=== PATIENT | female | born 2000 | race Caucasian/White ===

== ENCOUNTER 2018-07-15 17:40 | Emergency (ER) | payer OTHER ==
[2018-07-15 18:11] VITALS: BP 97/52; PULSE 81; RESP 16; TEMP 98.8; O2SAT 98
--- NOTE | 2018-07-15 20:44 | ED PDOC ---
History of Present Illness History of Present Illness: Vern Rushing is a 17 year old female, with a past medical history of asthma , who presents to the emergency department complaining of sore throat associated with mild body aches and feeling fatigued onset for x2 days. Patient has a history of asthma and has been having intermittent chest tightness and cough consistent with her asthma for the past x1 week. She has been using nebulizer at home with improvement. She denies any fever or chills. No further medical complaints. PMD: None provided. HPI: Influenza Time Seen by Provider: 07/15/18 19:01 Chief Complaint: Flu-like Symptoms Chief Complaint (Provider): sore throat, body aches and fatigue History Per: Patient Exam Limitations: no limitations Symptoms include: bodyaches, sore throat, cough. denies: fever Past Medical History Reviewed: Historical Data, Nursing Documentation, Vital Signs Vital Signs: Last Vital Signs Temp 98.8 F 07/15/18 18:08 Pulse 81 07/15/18 18:08 Resp 16 07/15/18 18:08 BP 97/52 L 07/15/18 18:08 Pulse Ox 98 07/15/18 18:08 - Medical History PMH: Asthma - Surgical History Surgical History: No Surg Hx - Family History Family History: States: Unknown Family Hx - Home Medications Home Medications: Ambulatory Orders Medication Instructions Recorded Ibuprofen [Ibu] 400 mg PO Q8 5 Days tablet 07/15/18 predniSONE [predniSONE Tab] 40 mg PO DAILY 5 Days tab 07/15/18 - Allergies Allergies/Adverse Reactions: Allergies Allergy/AdvReac Type Severity Reaction Status Date / Time apple Allergy SWELLING Verified 07/15/18 18:12 tony Allergy ITCHING Verified 07/15/18 18:12 Review of Systems ROS Statement: Except As Marked, All Systems Reviewed And Found Negative Constitutional: Positive for: Other (fatigue and body aches). Negative for: Fever, Chills ENT: Positive for: Throat Pain Cardiovascular: Positive for: Other (chest tightness) Respiratory: Positive for: Cough Physical Exam - Reviewed Nursing Documentation Reviewed: Yes Vital Signs Reviewed: Yes - Physical Exam Appears: Positive for: No Acute Distress Head Exam: Positive for: ATRAUMATIC, NORMOCEPHALIC Skin: Positive for: Normal Color, Warm, Dry Eye Exam: Positive for: Normal appearance, EOMI, PERRL ENT: Positive for: Pharyngeal Erythema Neck: Positive for: Painless ROM Cardiovascular/Chest: Positive for: Regular Rate, Rhythm. Negative for: Murmur Respiratory: Positive for: Normal Breath Sounds. Negative for: Respiratory Distress Gastrointestinal/Abdominal: Positive for: Normal Exam, Soft. Negative for: Tenderness Extremity: Positive for: Normal ROM (upper and lower extremities). Negative for : Deformity, Swelling Neurologic/Psych: Positive for: Alert, Oriented Medical Decision Making Medical Decision Making: Time: 19:01 Initial impression: Viral pharyngitis Initial Plan: --Urine --Motrin tab 400 mg PO --Prednisone 50 mg PO --Throat culture --Rapid Strep Group A Antigen --Reevaluation 20:36 -Strep negative. 20:40 -Upon provider evaluation patient is medically stable, and requires no further treatment in the ED at this time. Patient will be discharged home with Rx for Ibuprofen and prednisone. Counseling was provided and all questions were answered regarding diagnosis. There is agreement to discharge plan. Return if symptoms persist or worsen. Scribe Attestation: Documented by Cameron Mckenna, acting as a scribe for Vilma Prince PA-C Provider Scribe Attestation: All medical record entries made by the Scribe were at my direction and personally dictated by me. I have reviewed the chart and agree that the record accurately reflects my personal performance of the history, physical exam, medical decision making, and the department course for this patient. I have also personally directed, reviewed, and agree with the discharge instructions and disposition. - ECG O2 Sat by Pulse Oximetry: 98 (RA) Pulse Ox Interpretation: Normal Disposition - Clinical Impression Clinical Impression: Viral pharyngitis - Patient ED Disposition Is Patient to be Admitted: No Doctor Will See Patient In The: Office Counseled Patient/Family Regarding: Studies Performed - Disposition Disposition: Routine/Home Disposition Time: 20:52 Condition: IMPROVED Prescriptions: Ibuprofen [Ibu] 400 mg PO Q8 5 Days tablet predniSONE [predniSONE Tab] 40 mg PO DAILY 5 Days tab Instructions: Viral Pharyngitis Forms: [facility] ([place]ian), [facility] ED School/Work Excuse
== END 2018-07-15 21:23 | disposition home or self-care (01) ==
LOC: H.ER 17:40
DX: J02.9 Acute pharyngitis, unspecified (principal)